=== PATIENT | male | born 1975 | race Caucasian/White ===

== ENCOUNTER 2021-03-23 10:14 | Day surgery (SDC) | payer OTHER ==
[2021-03-21 16:48] VITALS: BMI 25.7
[2021-03-23] MEDS ORDERED: GUM MASTIC/STORAX/MSAL/ALCOHOL 1 DRP DROPSBTL MC ONE (11:11)
[2021-03-23] MEDS ORDERED: MIDAZOLAM HCL 2 MG/2 ML SINGLE DOSE VIAL ONE (12:06)
[2021-03-23] MEDS ORDERED: PROPOFOL 20 ML ONE (12:08)
[2021-03-23] MEDS ORDERED: SUCCINYLCHOLINE CHLORIDE 200 MG/10 ML SYRINGE ONE (12:08)
[2021-03-23] MEDS ORDERED: BUPIVACAINE HCL/PF 0.25% (2.5MG/ML) 10 ML VIAL ONE (13:05)
[2021-03-23] MEDS ORDERED: PROMETHAZINE HCL 25 MG/1 ML VIAL IVPUSH PRN (13:20)
[2021-03-23] MEDS ORDERED: ONDANSETRON 4 MG/2 ML VIAL IVPUSH PRN (13:20)
[2021-03-23] MEDS ORDERED: oxyCODONE HCL 5 MG TABLET PO PRN (13:20)
[2021-03-23] MEDS ORDERED: LACTATED RINGERS SOLUTION 1,000 ML IV SCH (13:30)
[2021-03-23 14:39] VITALS: BP 131/85; PULSE 69; TEMP 97.9
== END 2021-03-23 14:52 | disposition home or self-care (01) ==
LOC: FASU 10:14
PROVIDERS: ATTEND Orthopaedic Surgery Hand Surgery
PROC: 01N54ZZ Release Median Nerve, Percutaneous Endoscopic Approach (ICD-10-PCS; principal; 2021-03-23 12:54)
DX: G56.02 Carpal tunnel syndrome, left upper limb (principal)
CPT/HCPCS: 94760